=== PATIENT | female | born 1945 | race Caucasian/White ===

== ENCOUNTER → 2018-08-23 | Outpatient (CLI) | payer MEDICARE, BC, OTHER ==
[~2018-08-23] MED LIST: CALCIUM 500 +1 EAC5 PO; CENTRUM SILVER1 EAC1 PO; FISH OIL 500 M1 EACH PO; NITROQUICK0.4 MG SL; SYNTHROID50 MCG PO
--- NOTE | 2018-08-23 17:23 | EXE ---
[place] [address] STRESS ECHOCARDIOGRAM Name: AWILDA SEGOVIAMandie Caal Room: [facility]#: [id number] Admission: 08/23/18 Attend Phys: Luke Scales Discharge: Date of : 49 Date of Service: 08/23/18 1723 Report #: [id number] THIS REPORT FOR: //name// APPROVED REPORT Study performed: 08/23/2018 11:33:38 Exam: Stress Echocardiogram Indication: Chest pain Patient Location: Out-Patient Stress Nurse: Azalia Mauro RN Supervising Physician: Faraz Lee MD Status: routine Ht: 5 ft 4 in HR: 67 bpm BP: 144/79 mmHg Rhythm: NSR Medical History Cardiac Risk Factors: age, , FHX of CAD Procedure The patient underwent an Exercise Stress Test using the Lionel Protocol. Blood pressure, heart rate, and EKG were monitored. An Echocardiogram was performed by auto repair technician in four stages in quad fashion. At peak stress, four selected images were obtained and placed side by side with resting images for comparison. Stress Test Details Stress Test: Exercise stress testing was performed using a Lionel protocol. HR Resting HR: 67 bpm Max Heart Rate (APMHR): 150 bpm Max HR Achieved: 152 bpm Target HR (85% APMHR): 127 bpm % of APMHR: 101 Recovery HR: 81 bpm HR response to stress: Normal HR response to stress BP Resting BP: 144/79 mmHg Max BP: 183/97 mmHg Recovery BP: 160/84 mmHg ECG Resting ECG: [place] [address] STRESS ECHOCARDIOGRAM Name: LUCAS SEGOVIA Room: [facility]#: [id number] Admission: 08/23/18 Attend Phys: Luke Scales Discharge: Date of : 49 Date of Service: 08/23/18 1723 Report #: [id number] Stress ECG: Sinus Tachycardia ST Change: None Arrhythmia: None Recovery ECG: Sinus Rhythm Recovery ST Change: None Recovery Arrhythmia: None Clinical Reason for Termination: ST changes Exercise duration: 5 min 1 sec Highest Stage Achieved: Stage 2: 2.5 mph at 12% grade. Exercise capacity: 7.03 METs The patient tolerated standard Lionel protocol exercise without significant symptoms. Stress ECG Conclusion The baseline 12-lead EKG show sinus rhythm without significant ST or T wave abnormality. EKGs obtained during and post exercise showed sinus rhythm and sinus tachycardia with no significant ST or T wave changes when compared baseline. There were no stress-induced arrhythmias. Pre-Stress Echo The resting Echocardiogram showed normal left ventricular contractility with an estimated Ejection Fraction of about 55-60%. Post-Stress Echo The stress Echocardiogram showed normal left ventricular contractility with an estimated Ejection Fraction of about >70%. Conclusion Clinical Response: Non-ischemic Exercise Capacity: Average Stress ECG Response: Non-ischemic Stress Echo Images: Non-ischemic The left ventricle is normal in size and wall thickness in both the rest and stress images. Other Information Study Quality: Good <Conclusion> [place] [address] STRESS ECHOCARDIOGRAM Name: LUCAS SEGOVIA Room: [facility]#: [id number] Admission: 08/23/18 Attend Phys: Luke Scales Discharge: Date of : 49 Date of Service: 08/23/181722 Report #: [id number] The left ventricle is normal in size and wall thickness in both the rest and stress images. <ELECTRONICALLY SIGNED> By: Luke Milan MD, FACC 08/23/181722 22 22 Luke Milan MD, FACC /INF
== END ==
LOC: M.CRD 11:00
DX: R07.9 Chest pain, unspecified (principal)